=== PATIENT | male | born 1980 | race Caucasian/White ===

== ENCOUNTER 2020-08-22 21:39 | Emergency (ER) | payer BC, SELFPAY ==
[2020-08-22 21:46] VITALS: BP 159/95; PULSE 88; RESP 18; TEMP 36.8; O2SAT 99; BMI 20.9
[2020-08-22] MEDS: Amoxicillin/Potassium Clav 875 MG TABLET PO (23:31)
[2020-08-22] MEDS: Diphth,Pertus(ACell),Tet Adult 0.5 ML SYRINGE IM (23:31)
[2020-08-22] MEDS: Lidocaine HCl 1 % MPF 5 ML VIAL 10 ML SUBCUT (23:31)
--- NOTE | 2020-08-22 23:40 | ED_ITS ---
HPI - Skin/Abscess/Foreign Bdy General Chief complaint: Skin/Abscess/Foreign Body Stated complaint: Fish hook caught in thumb Time Seen by Provider: 08/22/20 23:19 Source: patient Mode of arrival: ambulatory Limitations: no limitations History of Present Illness HPI narrative: Was out fishing today and got fishhook stuck in the left thumb. Occurred just prior to arrival. Unsure of his tetanus vaccination. No known drug allergies. MD complaint: foreign body Onset (ago): day(s) Tetanus up to date: no Location: L hand Severity: mild Relieving factors: none Exacerbating factors: none Context: none Associated symptoms: denies other symptoms Treatments prior to arrival: none Related Data Previous Rx's Medication Instructions Recorded amoxicillin-pot clavulanate 1 tab PO Q12H 10 Days #20 tab 08/22/20 [Augmentin] Allergies Allergy/AdvReac Type Severity Reaction Status Date / Time No Known Allergies Allergy Unverified 11/19/19 15:21 [No Known Allergies*] Review of Systems Review of Systems: Constitutional: No Weight loss, No Fever, No Chills, No Night Sweats, No Fatigue, No Malaise ENT/Mouth: No Hearing loss, No Ear Pain, No Nasal Congestion, No Sinus Pain, No Hoarseness, No sore throat, No Rhinorrhea, No Swallowing Difficulty Eyes: No Eye Pain, No Swelling, No Redness, No Foreign Body, No Discharge, No Vision Changes Cardiovascular: No Chest Pain, No SOB, No Dyspnea on Exertion, No Orthopnea, No Edema, No Palpitations Respiratory: No Cough, No Sputum, No Wheezing, No Smoke Exposure, No Dyspnea Gastrointestinal: No Nausea, No Vomiting, No Diarrhea, No Constipation, No abdominal Pain, No Hematochezia, No Melena Genitourinary: no irregular bleeding, No Dysuria, No Urinary Frequency, No Hematuria, No Urinary Incontinence, No Urgency, No Flank Pain, No Urinary Flow Changes, No Hesitancy Musculoskeletal: No joint pain, No Myalgias, No Joint Swelling Skin: No Skin Lesions, No rash , fishhook to the left thumb as noted per HPI Neuro: No Weakness, No Numbness, No Paresthesias, No Loss of Consciousness, No Dizziness, No Headache Psych: No Social Issues Heme/Lymph: No Bruising, No Bleeding,No Lymphadenopathy Endocrine: No Polyuria, No Polydipsia, No Temperature Intolerance Yes all other systems are reviewed and are negative FORMERLY [facility], [facility] Past Medical History Medical History (Updated 08/22/20 @ 23:42 by Rolando Manning NP) No known health problems Social History Social History Advance Directives: No Advance Directives Information Provided: Yes Physical Exam 2 Vital Signs: Vital Signs: Last Vital Signs Temp 98.2 F 08/22/20 21:46 Pulse 88 08/22/20 21:46 Resp 18 08/22/20 21:46 BP 159/95 H 08/22/20 21:46 Pulse Ox 99 08/22/20 21:46 Body Mass Index 20.9 Reviewed Const: General: cooperative and healthy appearing; No acute distress or intoxicated appearing Nutritional Appearance: average body habitus Orientation/consciousness: patient oriented x3 Chest: Chest palpation & inspection: normal inspection of the chest Resp: Effort & Inspection: normal respiratory effort Cardio: Jugular venous distension: no JVD Skin: General skin exam: no rashes or lesions noted Neuro: General: patient oriented x3 Extrem: General: Yes normal to inspection Left upper extremity: hand Hand/finger images: 1. Partially imbedded fishhook. Full range of motion thumb. Unable to remove with gentle movement. Procedures Foreign Body Removal Site: left and hand (Thumb) Description of foreign body: fish hook Sedation/Analgesia: other (7 mL of 1% lidocaine used in the proximal thumb for a digital block.) Technique: removal with forceps Confirmed by:: direct visualization Complications: none Post-procedure exam: awake, alert Neurovascular: normal distal pulse, normal capillary fill, distal light touch sensation intact, distal motor function normal and no signs of compartment syndrome Discharge Plan Discharge Clinical Impression: Fish hook injury of finger Qualifiers: Encounter type: initial encounter Laterality: left Qualified Code(s): S69.92XA - Unspecified injury of left wrist, hand and finger(s), initial encounter Patient Disposition: Home, Self-Care Instructions: Puncture Wound (ED) Additional Instructions: You had a single facial to the left thumb that was removed fully intact. You were given tetanus vaccination today There is a high risk for infection thus you were given prophylactic antibiotics (antibiotics to prevent infection) Monitor for signs of infection including redness, swelling, discharge, pain if any of these present return to emergency room right away otherwise take the full course of antibiotic as prescribed. Follow up her primary care doctor Return if any concerns or worsening symptoms Thank you Prescriptions: New amoxicillin-pot clavulanate [Augmentin] 875-125 mg tablet 1 tab PO Q12H 10 Days Qty: 20 RF: 0 Referrals: Physician,Unknown [Primary Care Provider] - 1 week
--- NOTE | 2020-08-22 23:40 | PC.NURSE ---
HOOK REMOVED BY BARTOLO URIBE.
== END 2020-08-23 00:05 | disposition home or self-care (01) ==
PROVIDERS: Emergency Provider Emergency Medicine
DX: S61.042A Puncture wound with foreign body of left thumb without damage to nail, initial encounter (principal); W26.8XXA Contact with other sharp object(s), not elsewhere classified, initial encounter; Y93.89 Activity, other specified; Y92.9 Unspecified place or not applicable; Y99.9 Unspecified external cause status
CPT/HCPCS: 90471; 90715; 96372; 99284

== ENCOUNTER 2022-09-07 10:10 | Emergency (ER) | payer BC, SELFPAY ==
[2022-09-07 10:17] VITALS: BP 143/102; PULSE 81; RESP 19; TEMP 36.6; O2SAT 98; BMI 19.7
--- NOTE | 2022-09-07 11:23 | ED.GENADULT ---
HPI - General Adult General Chief complaint: Syncope Stated complaint: 09/06 seizure? Time Seen by Provider: 09/07/22 11:18 Source: patient, RN notes reviewed and old records reviewed Mode of arrival: ambulatory History of Present Illness HPI narrative: 41-year-old male with no significant past medical history presenting to the ED complaining of syncopal episode yesterday. Admits drink about 7 beers, had an edible, and also used cocaine, was outside all day in the heat doing physical activity, states did not drink much or any water, felt lightheaded/dizzy the end of the day and syncopized, unwitnessed. was in the house states saw patient on the ground unresponsive, mildly contracted, denies incontinence or tongue biting. Paramedics presented to patient's home after incident, suspected syncope, did quit eval and patient refused transport. Patient denies symptoms at present, states PCP recommended he be evaluated. Denies headache, neck/back pain, CP/SOB, abdominal pain, nausea/vomiting. Denies taking anticoagulation Onset (ago): day(s) Related Data Previous Rx's Medication Instructions Recorded amoxicillin 875 mg-potassium 1 tab PO Q12H 10 days #20 tabs 08/22/20 clavulanate 125 mg tablet (Augmentin) Allergies Allergy/AdvReac Type Severity Reaction Status Date / Time No Known Allergies Allergy Verified 09/07/22 10:16 [No Known Allergies*] Review of Systems Review of Systems: Constitutional: No Fever, No Chills, No Fatigue, No Malaise ENT/Mouth: No Ear Pain, No Nasal Congestion, No sore throat, No Rhinorrhea, No Swallowing Difficulty Eyes: No Eye Pain, No Swelling, No Redness, No Vision Changes Cardiovascular: No Chest Pain, No SOB Respiratory: No Cough, No Sputum, No Dyspnea Gastrointestinal: No Nausea, No Vomiting, No Diarrhea, No Constipation, No Abdominal pain Genitourinary: No Dysuria, No Urinary Frequency, No Hematuria, No Urinary Incontinence/retention, No Flank Pain Musculoskeletal: No joint pain, No Myalgias, No Joint Swelling Skin: No Skin Lesions, No rash Neuro: No Weakness, No Numbness, No Paresthesias, + Loss of Consciousness, + lightheaded, No Headache Yes all other systems are reviewed and are negative Constitutional: Constitutional: Reports as per HPI Neurologic: Denies Abnormal speech present PMFSH Past Medical History Attestation statement: The following information was validated with the patient. Source: old records reviewed Medical History No known health problems Social History Social History Advance Directives: No Physical Exam ED Vital Signs: Vital Signs - 24 hr 09/07/22 10:17 09/07/22 12:05 09/07/22 12:34 Temperature 98 F 99.3 F Pulse Rate 81 64 Respiratory Rate 19 14 Blood Pressure 143/102 H 153/102 H Pulse Oximetry 98 99 97 Oxygen Delivery Method Room Air Room Air Room Air 09/07/22 13:50 09/07/22 13:50 09/07/22 13:51 Temperature Pulse Rate 62 68 68 Respiratory Rate Blood Pressure 124/71 144/89 H 153/89 H Pulse Oximetry Oxygen Delivery Method BMI result Body Mass Index 19.7 Const General: cooperative, healthy appearing, comfortable, no acute distress, alert and awake Orientation/consciousness: patient oriented x3 Limitations: no limitations HENMT Head: Yes normal to inspection, Yes atraumatic, No Thomas's sign and No raccoon eyes Ears: hearing grossly normal bilaterally General nose exam: Normal external nose present Face and sinus: Yes normal facial exam Mouth: Normal oral and palatal mucosa present Throat: Yes posterior oropharynx normal, Yes tonsils normal, Yes uvula midline, No peritonsillar mass and No uvula laterally displaced Eyes General: appearance normal, both eyes and all related structures Pupils: Equal, round and reactive pupils present EOM: EOMs intact bilaterally Neck Neck: Yes normal visual inspection and Yes no meningeal signs Chest Chest palpation & inspection: normal inspection of the chest Resp Effort & Inspection: normal respiratory effort and no respiratory distress Auscultation: clear to auscultation bilaterally, no rales and no wheezes Cardio Rate: regular rate Heart sounds: S1 normal heart sound present and S2 normal heart sound present GI Inspection: Yes normal to inspection Palpation (GI): Soft to palpation, nontender, no guarding and not rigid General: Yes no CVA tenderness Back/Spine/Pelvis Other: No midline cervical/thoracic/lumbar spinous tenderness/step-off or deformity Back: no CVA tenderness Skin Rashes: no rashes Wounds: no wounds Neuro General: patient oriented x3, gait normal, tone normal, no meningeal signs, no focal motor deficits and CN's II-XI intact bilaterally Cranial nerves: Yes CN's II-XII intact bilaterally, Yes Equal, round and reactive pupils present and Yes Bilaterally intact EOM present Cognition (Neuro): normal cognition Speech: No Abnormal speech present Gait exam (Neuro): Normal gait present Motor exam (neuro): 5/5 motor strength present throughout, Pronator motor function not present and no tremor noted Coordination: [id number] test normal Extrem General: Yes normal to inspection Course Course Course Narrative: -[id number]--no leukocytosis. H&H stable. Labs otherwise reassuring, troponin negative. UA negative. Tox screen positive for cocaine and THC -orthostatic vital signs negative. Patient tolerating p.o. in the ED Results discussed with patient including worrisome signs and symptoms and strict return precautions, and when to return to the emergency department. They verbalized understanding and feel safe for discharge at this time. Medications Administered Discontinued Medications Generic Name Dose Route Start Last Admin Trade Name Freq PRN Reason Stop Dose Admin Sodium Chloride 1,000 mls @ 999 mls/hr 09/07/22 12:00 09/07/22 12:05 Ns IV 09/07/22 13:00 999 mls/hr .Q1H1M [facility] Administration Medical Decision Making Medical Decision Making [facility] Narrative: 41-year-old male with no significant past medical history presenting to the ED complaining of syncopal episode yesterday. Admits drink about 7 beers, had an edible, and also used cocaine, was outside all day in the heat doing physical activity, states did not drink much or any water, felt lightheaded/dizzy the end of the day and syncopized, unwitnessed. On exam hypertensive, NAD, nontoxic appearing, asymptomatic at present, no midline spinous tenderness or red flag symptoms, no focal neuro deficits. Concern for polysubstance abuse vs vasovagal syncope vs dehydration/metabolic abnormalities. Lower suspicion for ICH/fracture Plan: EKG, labs, UA, orthostatics, IVF, re-evaluate Please refer to course for remaining clinical decision making, interpretation of labs/imaging results, and discussions with consultants and/or family members. Differential Diagnosis Differential Diagnoses: The differential diagnosis associated with the presentation includes As above Admission/Observation Consideration of admission/observation: Escalation of care including admission/observation considered Lab Data MDM Lab Attestation statement: I reviewed the patient's lab results. 09/07/22 10:33 09/07/22 10:33 Labs: Lab Results 09/07/22 09/07/22 09/07/22 Range/Units 10:33 10:33 11:55 WBC 8.3 (4.8-10.8) X10*3/uL RBC 4.80 (4.60-5.80) X10*6/uL Hgb 15.5 (14.0-18.0) g/dl Hct 43.1 (42.0-52.0) % MCV 89.8 (80.0-98.0) fL MCH 32.3 (27.0-33.0) pg MCHC 36.0 (31.0-36.0) g/dl RDW 11.9 (11.0-16.0) % Plt Count 253 (160-400) X10*3/uL MPV 9.6 (9.4-12.4) fL Immature Gran % (Auto) 0.2 (0.0-0.4) % Neut % (Auto) 66.5 (45-73) % Lymph % (Auto) 20.4 (20-40) % [place] % (Auto) 8.5 (2-11) % Eos % (Auto) 3.8 (0-4) % Baso % (Auto) 0.6 (0-2) % Lymph # (Auto) 1.7 (1.2-4.9) X10*3/uL [place] # (Auto) 0.7 (0.1-1.2) X10*3/uL Eos # (Auto) 0.3 (0.0-0.4) X10*3/uL Baso # (Auto) 0.1 (0.0-0.2) X10*3/uL Abs Immat Gran (auto) 0.02 (0.00-0.03) X10*3/uL Absolute Neuts (auto) 5.5 (2.0-8.3) x10*3/uL Absolute Nucleated RBC 0.000 (0.0-0.012) X10*3/uL Nucleated RBC % (auto) 0.0 (0.0-0.2) /100WBC Sodium 142 (135-145) mmol/L Potassium 3.7 (3.3-5.1) mmol/L Chloride 108 (96-108) mmol/L Carbon Dioxide 26 (22-29) mmol/L Anion Gap 12 (12-20) BUN 9 (9-16) mg/dL Creatinine 0.79 (0.5-1.4) mg/dL Estim Creat Clear Calc 115.6 Estimated GFR > 60 Random Glucose 125 H (60-115) mg/dL Calcium 9.4 (8.4-10.2) mg/dL Magnesium 2.4 (1.6-2.6) mg/dL Total Bilirubin 0.5 (0.0-1.0) mg/dL Direct Bilirubin 0.2 (0.0-0.5) mg/dL AST 35 (5-37) U/L ALT 28 (0-40) U/L Alkaline Phosphatase 84 (39-117) U/L Troponin I High Sens (<3.5-35.0) ng/L Total Protein 6.9 (6.5-8.0) g/dL Albumin 4.1 (3.5-5.0) g/dL Urine Color Yellow Urine Appearance Clear Urine pH 6.0 (5.0-9.0) Ur Specific [place] 1.020 (1.005-1.025) Urine Protein Negative (Neg-Trace) mg/dL Urine Glucose (UA) Negative (Negative) mg/dL Urine Ketones Negative (Negative) mg/dL Urine Blood Negative (Negative) Urine Nitrite Negative (Negative) Ur Leukocyte Esterase Negative (Negative) Urine Opiates Screen (Not Detect) Urine Fentanyl Screen (Not Detect) Ur Barbiturates Screen (Not Detect) Ur Phencyclidine Scrn (Not Detect) Ur Amphetamines Screen (Not Detect) U Benzodiazepines Scrn (Not Detect) Urine Cocaine Screen (Not Detect) U Marijuana (THC) Screen (Not Detect) Ethyl Alcohol mg/dL 09/07/22 09/07/22 09/07/22 Range/Units 11:55 12:01 12:01 WBC (4.8-10.8) X10*3/uL RBC (4.60-5.80) X10*6/uL Hgb (14.0-18.0) g/dl Hct (42.0-52.0) % MCV (80.0-98.0) fL MCH (27.0-33.0) pg MCHC (31.0-36.0) g/dl RDW (11.0-16.0) % Plt Count (160-400) X10*3/uL MPV (9.4-12.4) fL Immature Gran % (Auto) (0.0-0.4) % Neut % (Auto) (45-73) % Lymph % (Auto) (20-40) % [place] % (Auto) (2-11) % Eos % (Auto) (0-4) % Baso % (Auto) (0-2) % Lymph # (Auto) (1.2-4.9) X10*3/uL [place] # (Auto) (0.1-1.2) X10*3/uL Eos # (Auto) (0.0-0.4) X10*3/uL Baso # (Auto) (0.0-0.2) X10*3/uL Abs Immat Gran (auto) (0.00-0.03) X10*3/uL Absolute Neuts (auto) (2.0-8.3) x10*3/uL Absolute Nucleated RBC (0.0-0.012) X10*3/uL Nucleated RBC % (auto) (0.0-0.2) /100WBC Sodium (135-145) mmol/L Potassium (3.3-5.1) mmol/L Chloride (96-108) mmol/L Carbon Dioxide (22-29) mmol/L Anion Gap (12-20) BUN (9-16) mg/dL Creatinine (0.5-1.4) mg/dL Estim Creat Clear Calc Estimated GFR Random Glucose (60-115) mg/dL Calcium (8.4-10.2) mg/dL Magnesium (1.6-2.6) mg/dL Total Bilirubin (0.0-1.0) mg/dL Direct Bilirubin (0.0-0.5) mg/dL AST (5-37) U/L ALT (0-40) U/L Alkaline Phosphatase (39-117) U/L Troponin I High Sens < 2.7 (<3.5-35.0) ng/L Total Protein (6.5-8.0) g/dL Albumin (3.5-5.0) g/dL Urine Color Urine Appearance Urine pH (5.0-9.0) Ur Specific [place] (1.005-1.025) Urine Protein (Neg-Trace) mg/dL Urine Glucose (UA) (Negative) mg/dL Urine Ketones (Negative) mg/dL Urine Blood (Negative) Urine Nitrite (Negative) Ur Leukocyte Esterase (Negative) Urine Opiates Screen Not Detected (Not Detect) Urine Fentanyl Screen Not Detected (Not Detect) Ur Barbiturates Screen Not Detected (Not Detect) Ur Phencyclidine Scrn Not Detected (Not Detect) Ur Amphetamines Screen Not Detected (Not Detect) U Benzodiazepines Scrn Not Detected (Not Detect) Urine Cocaine Screen POSITIVE H (Not Detect) U Marijuana (THC) Screen POSITIVE H (Not Detect) Ethyl Alcohol < 10 mg/dL Independent Interpretation I performed an independent interpretation of an: EKG Radiology Impression Discussion of test interpretation with radiology: I have reviewed the radiologist's reading. Independent Historian Clinical information obtained from an independent historian. History obtained from or confirmed by: Spouse External Record Review External record reviewed: Inpatient record, Office record, Outpatient record, Prior outpatient labs, Prior outpatient radiology, Primary care record and Outside ED record Tests considered The following testing was considered but not selected: As above Discharge Plan Discharge Clinical Impression: Vasovagal syncope Patient Disposition: Home, Self-Care Instructions: Syncope (DC) Additional Instructions: Blood work and urine were reassuring Please avoid alcohol and drug use Make sure your staying hydrated at home Follow up with her doctor If symptoms persist or worsen, you have recurrent passing out episodes, have chest pain or shortness of breath return to the emergency department Prescriptions: No Action amoxicillin-pot clavulanate [Augmentin] 875-125 mg tablet 1 tab PO Q12H 10 Days Qty: 20 0RF Referrals: Physician,Unknown J [Primary Care Provider] - 5 days
[2022-09-07 12:05] VITALS: BP 153/102; PULSE 64; RESP 14; TEMP 37.4; O2SAT 99
[2022-09-07 12:34] VITALS: O2SAT 97
--- NOTE | 2022-09-07 12:36 | PC.NURSE ---
resting comfortably, no signs/symptoms of distress. iv fluids infusing, NSR on monitor.
[2022-09-07 13:50] VITALS: BP 124/71; BP 144/89; PULSE 62; PULSE 68
[2022-09-07 13:51] VITALS: BP 153/89; PULSE 68
== END 2022-09-07 14:13 | disposition home or self-care (01) ==
PROVIDERS: Emergency Provider Emergency Medicine Emergency Medical Services
DX: R55 Syncope and collapse (principal); F14.10 Cocaine abuse, uncomplicated; R94.31 Abnormal electrocardiogram [ECG] [EKG]; Z79.899 Other long term (current) drug therapy
CPT/HCPCS: 36415; 80048; 80076; 80307; 81003; 83735; 84484; 85025; 93005; 99283; 99285